=== PATIENT | female | born 1985 | race Caucasian/White ===

== ENCOUNTER 2016-08-24 13:57 | Emergency (ER) | payer BC ==
[2016-08-24 17:11] VITALS: BP 127/68
--- NOTE | 2016-08-24 17:56 | UC ---
Throat Pain/Nasal Mamadou HPI - HPI Summary HPI Summary: TEN DAYS OF NASAL CONGESTION BILATERAL EAR PAIN AND PRESSURE NASAL CONGESTION PRESSURE AND COUGH. NO FEVER. - History of Current Complaint Chief Complaint: UCGeneralIllness Stated Complaint: COUGH, SINUS COMPLAINT Time Seen by Provider: 08/24/16 17:15 Hx Obtained From: Patient Hx Last Menstrual Period: 08/16/16 Onset/Duration: Gradual Onset, Lasting Weeks, Still Present Severity: Moderate Cough: Nonproductive Associated Signs & Symptoms: Positive: Sinus Discomfort, Nasal Discharge - Allergies/Home Medications Allergies/Adverse Reactions: Allergies Allergy/AdvReac Type Severity Reaction Status Date / Time Cephalexin [From Keflex] Allergy Severe Hives Verified 08/24/16 17:11 ? bee stings Allergy Swelling Uncoded 08/24/16 17:11 PMH/Surg Hx/FS Hx/Imm Hx Previously Healthy: Yes Endocrine History Of: Denies: Diabetes Cardiovascular History Of: Denies: Cardiac Disorders Respiratory History Of: Denies: Asthma - Surgical History Surgical History: Yes Surgery Procedure, Year, and Place: wisdom teeth x4 07/2012 - Family History Known Family History: Positive: Unknown, Other - aunt has positive history of endometriosis Negative: Diabetes - Social History Occupation: Employed Full-time Lives: With Family Alcohol Use: Occasionally Substance Use Type: None Smoking Status (MU): Never Smoked Tobacco Review of Systems Constitutional: Negative Skin: Negative Eyes: Negative ENT: Ear Ache, Nasal Discharge Respiratory: Cough Cardiovascular: Negative Gastrointestinal: Negative Genitourinary: Negative Motor: Negative Neurovascular: Negative Musculoskeletal: Negative Neurological: Negative Psychological: Negative All Other Systems Reviewed And Are Negative: Yes Physical Exam Triage Information Reviewed: Yes Appearance: Well-Appearing, No Pain Distress, Well-Nourished Vital Signs: Initial Vital Signs Temp 98.0 F 08/24/16 17:07 Pulse 77 08/24/16 17:07 Resp 16 08/24/16 17:07 BP 127/68 08/24/16 17:07 Pulse Ox 100 08/24/16 17:07 Vital Signs Reviewed: Yes Eye Exam: Normal ENT: Positive: Hearing grossly normal, Pharynx normal, TM bulging - S/P IRRIGATION, TM dull - S/P IRRIGATION, Other: - BILATERAL CERUMEN IMPACTION Dental Exam: Normal Neck exam: Normal Neck: Positive: Supple, Nontender, No Lymphadenopathy Respiratory Exam: Normal Respiratory: Positive: Chest non-tender, Lungs clear, Normal breath sounds, No respiratory distress, No accessory muscle use Cardiovascular Exam: Normal Cardiovascular: Positive: RRR, No Murmur, Pulses Normal Abdominal Exam: Normal Abdomen Description: Positive: Nontender, No Organomegaly Musculoskeletal Exam: Normal Musculoskeletal: Positive: Strength Intact, ROM Intact, No Edema Neurological Exam: Normal Psychological Exam: Normal Psychological: Positive: Normal Response To Family Skin Exam: Normal Throat Pain/Nasal Course/Dx - Differential Dx/Diagnosis Differential Diagnosis/HQI/PQRI: Pharyngitis, Sinusitis, Tonsillitis, URI Provider Diagnoses: SINUSITIS. BILATERAL CERUMEN IMPACTION Discharge - Discharge Plan Condition: Stable Disposition: HOME Prescriptions: DOXYcycline CAP(*) [DOXYcycline 100MG CAP(*)] 100 mg PO BID #20 cap Patient Education Materials: Sinusitis (ED), Cerumen Impaction (ED) Referrals: Joya King NP [Primary Care Provider] -
== END 2016-08-24 17:59 | disposition home or self-care (01) ==
LOC: UCCORT 13:57
DX: J32.9 Chronic sinusitis, unspecified (principal); H61.23 Impacted cerumen, bilateral; Z88.1 Allergy status to other antibiotic agents
CPT/HCPCS: 99213; G0463

== ENCOUNTER 2018-11-23 09:22 | Emergency (ER) | payer BC ==
[2018-11-23 09:52] VITALS: BP 121/63
--- NOTE | 2018-11-23 10:03 | UC ---
[facility] General HPI - HPI Summary HPI Summary: C/O left foot pain on lateral side. Yesterday she accidentally stepped on her 8 month's old blocks - felt a pop and sharp pain. Did not twist it. This morning she had a lot of pain bearing weight. Fractured her foot in similar area when she was in highschool. She is walking with a postop show currently. 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 Meds : Reviewed - History of Current Complaint Chief Complaint: UCLowerExtremity Stated Complaint: LT FOOT INJURY Time Seen by Provider: 11/23/18 09:52 Hx Last Menstrual Period: November 01 Pain Intensity: 1 - Allergy/Home Medications Allergies/Adverse Reactions: Allergies Allergy/AdvReac Type Severity Reaction Status Date / Time cephalexin [From Keflex] Allergy Hives Verified 11/23/18 09:52 PMH/Surg Hx/FS Hx/Imm Hx Previously Healthy: Yes - Surgical History Surgical History: None - Family History Known Family History: Positive: None, Non-Contributory - Social History Alcohol Use: Rare Substance Use Type: None Smoking Status (MU): Never Smoked Tobacco - Immunization History Most Recent Tetanus Shot: 2016 Review of Systems All Other Systems Reviewed And Are Negative: Yes Motor: Positive: Other - left foot pain Physical Exam Triage Information Reviewed: Yes Appearance: Well-Appearing Vital Signs: Initial Vital Signs Temp 98.1 F 11/23/18 09:43 Pulse 65 11/23/18 09:43 Resp 18 11/23/18 09:43 BP 121/63 11/23/18 09:43 Pulse Ox 98 11/23/18 09:43 Vital Signs Reviewed: Yes Musculoskeletal: Positive: Other: - pain over lateral left foot mid foot region. No significant edema or erythema/ecchymosis Diagnostics - Radiology left foot xray Radiology Interpretation Completed By: Radiologist Summary of Radiographic Findings: NO evidence of fracture. Course/Dx - Course Course Of Treatment: This is a 33 yr old with left foot pain Assessment Xray; No fracture Plan Recommend weight baring as tolerated Continue to use post-op show as needed for comfort REcommend ibuprofen as needed for pain - take with food If symptoms persist or worsen, recommend follow up imaging - Diagnoses Provider Diagnosis: Foot contusion Discharge - Sign-Out/Discharge Documenting (check all that apply): Patient Departure All imaging exams completed and their final reports reviewed: Yes - Discharge Plan Condition: Good Disposition: HOME Referrals: Christy Hurst MD [Primary Care Provider] - Additional Instructions: Recommend weight baring as tolerated Continue to use post-op show as needed for comfort REcommend ibuprofen as needed for pain - take with food If symptoms persist or worsen, recommend follow up imaging - Billing Disposition and Condition Condition: GOOD Disposition: Home
== END 2018-11-23 10:30 | disposition home or self-care (01) ==
LOC: UCCORT 09:22 → MERGE 09:22 → UCCORT 10:30
DX: S90.32XA Contusion of left foot, initial encounter (principal); W22.09XA Striking against other stationary object, initial encounter; Y93.01 Activity, walking, marching and hiking; Y92.019 Unspecified place in single-family (private) house as the place of occurrence of the external cause; Z88.8 Allergy status to other drugs, medicaments and biological substances
CPT/HCPCS: 99211; G0463

== ENCOUNTER 2018-12-07 16:09 | Emergency (ER) | payer BC ==
[2018-12-07 17:40] VITALS: BP 101/69
--- NOTE | 2018-12-07 17:52 | UC ---
Respiratory Complaint HPI - HPI Summary HPI Summary: Pt presents with c/o nasal congestion, cough, sinus pressure, pain and wheezing X 10 days. Pt reports that chest congestion is worsening and cough worsens in recumbent position. - History of Current Complaint Chief Complaint: UCGeneralIllness Stated Complaint: COUGH Time Seen by Provider: 12/07/18 17:38 Hx Obtained From: Patient Hx Last Menstrual Period: 11/30/18 ?: No Onset/Duration: Gradual Onset, Lasting Days - 10, Still Present, Worse Since - onset Timing: Constant Severity Initially: Mild Severity Currently: Moderate Pain Intensity: 1 Character: Cough: Productive Aggravating Factors: Exertion, Deep Breaths, Recumbent Position Alleviating Factors: Nothing Associated Signs And Symptoms: Positive: Wheezing, URI, Nasal Congestion, Sinus Discomfort Related History: Seasonal Allergies - Risk Factors Pulmonary Embolism Risk Factors: Negative Cardiac Risk Factors: Negative Pseudomonas Risk Factors: Negative Tuberculosis Risk Factors: Negative - Allergies/Home Medications Allergies/Adverse Reactions: Allergies Allergy/AdvReac Type Severity Reaction Status Date / Time cephalexin [From Keflex] Allergy Hives Verified 11/23/18 11:28 ? bee stings Allergy Swelling Uncoded 11/23/18 11:28 PMH/Surg Hx/FS Hx/Imm Hx Previously Healthy: Yes - Surgical History Surgical History: None Surgery Procedure, Year, and Place: wisdom teeth x4 07/2012 - Family History Known Family History: Positive: None, Unknown, Other - aunt has positive history of endometriosis, Non-Contributory Negative: Diabetes - Social History Occupation: Employed Full-time Lives: With Family Alcohol Use: Rare Substance Use Type: None Smoking Status (MU): Never Smoked Tobacco Have You Smoked in the Last Year: No - Immunization History Most Recent Tetanus Shot: 2017 Vaccination Up to Date: Yes Review of Systems All Other Systems Reviewed And Are Negative: Yes Constitutional: Positive: Chills, Fatigue Skin: Positive: Negative Eyes: Positive: Negative ENT: Positive: Sinus Congestion Respiratory: Positive: Shortness Of Breath - with exertion, Cough Cardiovascular: Positive: Negative Gastrointestinal: Positive: Negative Genitourinary: Positive: Negative Motor: Positive: Negative Neurovascular: Positive: Negative Musculoskeletal: Positive: Negative Neurological: Positive: Negative Psychological: Positive: Negative Is Patient Immunocompromised?: No Physical Exam Triage Information Reviewed: Yes Appearance: Ill-Appearing Vital Signs: Initial Vital Signs Temp 97.6 F 12/07/18 17:34 Pulse 71 12/07/18 17:34 Resp 16 12/07/18 17:34 BP 101/69 12/07/18 17:34 Pulse Ox 100 12/07/18 17:34 Vital Signs Reviewed: Yes Eye Exam: Normal ENT: Positive: Nasal congestion, Hoarse voice Dental Exam: Normal Neck exam: Normal Neck: Positive: Supple Respiratory: Positive: Wheezing Cardiovascular Exam: Normal Musculoskeletal Exam: Normal Neurological Exam: Normal Psychological Exam: Normal Skin Exam: Normal Respiratory Course/Dx - Differential Dx/Diagnosis Differential Diagnosis/HQI/PQRI: Bronchitis, Influenza Provider Diagnosis: Bronchitis Discharge - Sign-Out/Discharge Documenting (check all that apply): Patient Departure All imaging exams completed and their final reports reviewed: No Studies - Discharge Plan Condition: Stable Disposition: HOME Prescriptions: Albuterol HFA INHALER* [Ventolin HFA Inhaler*] 1 - 2 puff INH Q4H PRN #1 mdi PRN Reason: Sob/Wheezing Azithromycin TAB* [Zithromax TAB (Z-ELBA) 250 mg #6 tabs] 2 tab PO .TODAY, THEN 1 DAILY #1 elba Benzonatate CAP* [Tessalon 100 MG CAP*] 200 mg PO Q8H PRN #30 cap PRN Reason: Cough predniSONE TAB* [Deltasone 20 MG TAB*] 20 mg PO DAILY #4 tab Patient Education Materials: Acute Bronchitis (ED) Referrals: Christy Hurst MD [Primary Care Provider] - If Needed Additional Instructions: Please follow up with your PCP as needed. - Billing Disposition and Condition Condition: STABLE Disposition: Home - Attestation Statements Provider Attestation: This patient was not seen by me. I was available for consult.
== END 2018-12-07 18:10 | disposition home or self-care (01) ==
LOC: UCCORT 16:09
DX: J40 Bronchitis, not specified as acute or chronic (principal); Z88.1 Allergy status to other antibiotic agents
CPT/HCPCS: 99212; G0463

== ENCOUNTER 2019-01-23 18:18 | Emergency (ER) | payer BC ==
[2019-01-23 20:05] VITALS: BP 83/59
--- NOTE | 2019-01-23 20:17 | UC ---
UC General HPI - HPI Summary HPI Summary: PT IS C/O A 2-3 DAY HX OF VAGINAL YEAST INFECTION. SHE DESCRIBES THIS A THICK WHITE ITCHY DISCHARGE. SHE HAS A HX OF THE SAME. SHE DENIES RISK AND CONCERN FOR STD. SHE HAS NO FEVER, ABDOMINAL PAIN, VAGINAL LESIONS OR URINARY DISCOMFORT. - History of Current Complaint Chief Complaint: UCGeneralIllness Stated Complaint: PERSONAL Time Seen by Provider: 01/23/19 19:54 Hx Obtained From: Patient Hx Last Menstrual Period: IUD in place, January 09 Onset/Duration: Gradual Onset Timing: Constant Pain Intensity: 0 - Allergy/Home Medications Allergies/Adverse Reactions: Allergies Allergy/AdvReac Type Severity Reaction Status Date / Time cephalexin [From Keflex] Allergy Hives Verified 11/23/18 11:28 ? bee stings Allergy Swelling Uncoded 11/23/18 11:28 PMH/Surg Hx/FS Hx/Imm Hx Previously Healthy: Yes - Surgical History Surgical History: None Surgery Procedure, Year, and Place: wisdom teeth x4 07/2012 - Family History Known Family History: Positive: None, Unknown, Other - aunt has positive history of endometriosis, Non-Contributory Negative: Diabetes - Social History Lives: With Family Alcohol Use: Occasionally Substance Use Type: None Smoking Status (MU): Never Smoked Tobacco Have You Smoked in the Last Year: No - Immunization History Most Recent Tetanus Shot: 2017 Vaccination Up to Date: Yes Review of Systems All Other Systems Reviewed And Are Negative: Yes Constitutional: Negative: Fever, Chills Gastrointestinal: Negative: Abdominal Pain Genitourinary: Positive: Vaginal/Penile Itching, Vaginal/Penile Discharge. Negative: Dysuria, Hematuria, Urgency Physical Exam Triage Information Reviewed: Yes Appearance: Well-Appearing Vital Signs: Initial Vital Signs Temp 98.4 F 01/23/19 19:58 Pulse 72 01/23/19 19:58 Resp 18 01/23/19 19:58 BP 83/59 01/23/19 19:58 Pulse Ox 100 01/23/19 19:58 Vital Signs Reviewed: Yes Eyes: Positive: Conjunctiva Clear Neck: Positive: Supple, Nontender Respiratory: Positive: Lungs clear Cardiovascular: Positive: RRR Abdomen Description: Positive: Nontender, No Organomegaly, Soft Bowel Sounds: Positive: Present Pelvic Exam: Positive: Other - PT REFUSED Musculoskeletal: Positive: ROM Intact Neurological: Positive: Alert Psychological: Positive: Age Appropriate Behavior Skin Exam: Normal Course/Dx - Differential Dx - Multi-Symptom Differential Diagnoses: Other - WILL TX PRESUMPTIVELY FOR YEAST VAGINITIS SINCE PT DECLINED PELVIC EXAM AND STD TESTING. - Diagnoses Provider Diagnosis: Yeast vaginitis Discharge - Sign-Out/Discharge Documenting (check all that apply): Patient Departure All imaging exams completed and their final reports reviewed: No Studies - Discharge Plan Condition: Stable Disposition: HOME Prescriptions: Fluconazole 150 MG TAB* [Diflucan 150 MG TAB*] 150 mg PO ONCE #1 tablet Patient Education Materials: Vaginitis (ED) Referrals: Christy Hurst MD [Primary Care Provider] - Additional Instructions: FOLLOW UP WITH YOUR PRIMARY CARE SCHEDULED IN 2 WEEKS. - Billing Disposition and Condition Condition: STABLE Disposition: Home - Attestation Statements Provider Attestation: Per institutional requirements, I have reviewed the chart, however, I was not consulted specifically or made aware of this patient by the midlevel provider. I did not personally evaluate, interact with , or disposition this patient.
== END 2019-01-23 20:23 | disposition home or self-care (01) ==
LOC: UCCORT 18:18
DX: B37.3 Candidiasis of vulva and vagina (principal); Z86.19 Personal history of other infectious and parasitic diseases; Z88.1 Allergy status to other antibiotic agents; Z97.5 Presence of (intrauterine) contraceptive device
CPT/HCPCS: 99212; G0463

== ENCOUNTER 2019-04-18 15:04 | Emergency (ER) | payer BC, OTHER ==
[2019-04-18 15:53] VITALS: BP 111/87
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
== END 2019-04-18 16:52 | disposition home or self-care (01) ==
LOC: UCCORT 15:04
DX: S00.33XA Contusion of nose, initial encounter (principal); W50.0XXA Accidental hit or strike by another person, initial encounter; Y93.89 Activity, other specified; Y92.9 Unspecified place or not applicable; Z88.1 Allergy status to other antibiotic agents
CPT/HCPCS: 70160; 99211; G0463